=== PATIENT | male | born 1995 | race Caucasian/White ===

== ENCOUNTER → 2018-06-04 | Outpatient (CLI) | payer BC | LOC: BMCIMAGING 15:41 | PROVIDERS: ATTEND Podiatrist Foot & Ankle Surgery | DX: M79.672 Pain in left foot (principal); M79.671 Pain in right foot; M21.621 Bunionette of right foot; M21.622 Bunionette of left foot ==

== ENCOUNTER → 2018-07-09 | Outpatient (CLI) | payer BC | LOC: BMCIMAGING 14:32 | PROVIDERS: ATTEND Podiatrist Foot & Ankle Surgery | DX: M21.622 Bunionette of left foot (principal) ==

== ENCOUNTER → 2018-08-04 | Outpatient (CLI) | payer BC | LOC: BMCIMAGING 14:19 | PROVIDERS: ATTEND Podiatrist Foot & Ankle Surgery | DX: Z47.89 Encounter for other orthopedic aftercare (principal) ==

== ENCOUNTER → 2018-09-10 | Outpatient (CLI) | payer BC | LOC: BMCIMAGING 15:18 ==